=== PATIENT | female | born 1970 | race Asian ===

== ENCOUNTER 2017-04-30 16:26 | Inpatient (IN) | payer OTHER ==
[~2017-04-30] VITALS: Ht 165.1 cm; Wt 77.1 kg
[2017-04-30] MEDS ORDERED: PRENATAL TABLE1 EAC1 PO (17:14)
== END 2017-05-02 11:31 | disposition left against medical advice (07) | DRG 778 ==
LOC: LDR 16:26 → OB/GYN 16:26 → LDR 17:06 → OB/GYN 05-01 10:44
PROC: 4A1HXCZ Monitoring of Products of Conception, Cardiac Rate, External Approach (ICD-10-PCS; principal; 2017-04-30)
DX: O60.03 Preterm labor without delivery, third trimester (principal); O26.873 Cervical shortening, third trimester; O30.003 Twin pregnancy, unspecified number of placenta and unspecified number of amniotic sacs, third trimester; O09.513 Supervision of elderly primigravida, third trimester; Z3A.31 31 weeks gestation of pregnancy

== ENCOUNTER → 2017-04-30 | Outpatient (CLI) | payer OTHER ==
[~2017-04-30] MED LIST: PRENATAL TABLE1 EAC1 PO
== END | disposition left against medical advice (07) ==
LOC: NST 12:31
DX: Z34.03 Encounter for supervision of normal first pregnancy, third trimester (principal); Z3A.32 32 weeks gestation of pregnancy; O30.003 Twin pregnancy, unspecified number of placenta and unspecified number of amniotic sacs, third trimester

== ENCOUNTER 2017-05-13 10:36 | Outpatient (CLI) | payer OTHER | END 2017-05-13 11:30 | disposition home or self-care (01) | LOC: NST 10:36 | DX: Z34.03 Encounter for supervision of normal first pregnancy, third trimester (principal); O30.003 Twin pregnancy, unspecified number of placenta and unspecified number of amniotic sacs, third trimester; O09.513 Supervision of elderly primigravida, third trimester ==

== ENCOUNTER 2017-05-21 10:03 | Outpatient (CLI) | payer OTHER | END 2017-05-21 11:54 | disposition home or self-care (01) | LOC: NST 10:03 | DX: Z34.03 Encounter for supervision of normal first pregnancy, third trimester (principal); O30.003 Twin pregnancy, unspecified number of placenta and unspecified number of amniotic sacs, third trimester ==

== ENCOUNTER 2017-06-04 09:56 | Outpatient (CLI) | payer OTHER | END 2017-06-04 10:41 | disposition home or self-care (01) | LOC: NST 09:56 | DX: O30.003 Twin pregnancy, unspecified number of placenta and unspecified number of amniotic sacs, third trimester (principal); O09.523 Supervision of elderly multigravida, third trimester; Z34.83 Encounter for supervision of other normal pregnancy, third trimester ==